=== PATIENT | male | born 1990 | race Caucasian/White ===

== ENCOUNTER 2021-12-09 21:41 | Observation (INO) | payer OTHER, SELFPAY ==
--- NOTE | ~2021-12-09 | CT_ITS ---
EXAMINATION: CT abdomen pelvis w con DATE: 12/09/2021 20:36 INDICATION: Right lower quadrant abdominal pain TECHNIQUE: Computed tomography (CT) of the abdomen and pelvis was performed with 100 mL Omnipaque-350 intravenous contrast. Automated exposure control and iterative reconstruction technique were employe d. The dose-length product was 1057.58 mGy-cm. COMPARISON: None FINDINGS: Lung bases are clear. Heart size is normal. No pericardial or pleural effusion. Small sliding-type hi atal hernia. Liver, gallbladder, spleen, pancreas, bilateral adrenal glands and left kidney are soniya l. 2.1 cm right renal cyst. Fluid-filled mildly dilated appendix measuring 8 mm diameter with mild in flammatory stranding the periappendiceal fat consistent with acute appendicitis. Remainder of the bow els are normal. Bladder is normal. No abscess or free intraperitoneal gas or fluid. No pathologically enlarged abdominal or pelvic lymphadenopathy. Bones are unremarkable. IMPRESSION: 1. Acute appendicitis Dr. Collins discussed these findings with Dr. Thayer at 8:58 PM. Reviewed, dictated and finalized at location A. SK[employer] TRA[employer]
[2021-12-09 19:07] VITALS: BP 148/88; PULSE 83; RESP 18; TEMP 36.6; O2SAT 100
[2021-12-09 20:03] VITALS: BP 129/81; PULSE 82; RESP 18; O2SAT 100
--- NOTE | 2021-12-09 20:07 | ED.ABDPAIN ---
HPI - Abdominal Pain General Chief Complaint: Abdominal Pain Stated Complaint: abd pain Time Seen by Provider: 12/09/21 19:59 Source: RN notes reviewed History of Present Illness HPI narrative: Patient presents emergency department from home for abdominal pain. Patient states symptoms began approximately 2 PM today pain is located in the right lower quadrant does not radiate. Described as sharp and stabbing. States he had one episode nausea vomiting. Denies any fever chills chest pain shortness of breath diarrhea or any other symptoms. States he not taking medication for the symptoms at home Related Data Home Medications Medication Instructions Recorded Confirmed No Home Medications 12/09/21 12/09/21 Allergies Allergy/AdvReac Type Severity Reaction Status Date / Time No Known Allergies Allergy Verified 12/09/21 20:04 Review of Systems Review of Systems: Gen.: Denies fevers or chills Eyes: Denies eye pain or visual change ENT: Denies congestion Respiratory: Denies shortness of breath or cough CV: Denies chest pain or palpitations GI: See HPI Musculoskeletal: Denies back pain or muscle pain Neuro: Denies numbness, tingling, weakness or focal weakness Skin: Denies rash Except as documented, all other systems reviewed and negative [facility] Past Medical History Medical History (Updated 12/09/21 @ 21:42 by Darell Thayer DO) Patient denies significant medical history Social History Social History (Updated 12/09/21 @ 20:08 by Darell Thayer DO) Smoking status: Never smoker Exam Narrative: APPEARANCE: No acute distress, nontoxic, resting in bed HEENT: Normocephalic, atraumatic, OMM RESPIRATORY: No respiratory distress, clear to auscultation bilaterally with no rhonchi wheezing or rales CARDIOVASCULAR: RRR s murmur ABDOMINAL: Soft nondistended tender palpation right lower quadrant no tenderness right upper quadrant, left upper quadrant left lower quadrant no rebound or guarding MUSCULOSKELETAl: Moves all extremities. No clubbing, cyanosis or edema. NEURO: Awake and alert. Following commands, speech normal, no focal deficits SKIN:: Warm, dry. Normal Color PSYCHIATRIC: Normal affect/mood Course Course Emergency Course: Discussed with Dr. Stone presentation work-up agrees with admission at this time Discussed with patient and family results of workup and diagnosis. Discussed need for admission. Patient and family understand and agree to current treatment plan Vital Signs Vital signs: Vital Signs Temperature 97.9 F 12/09/21 19:07 Pulse Rate 83 12/09/21 19:07 Respiratory Rate 18 12/09/21 19:07 Blood Pressure 148/88 H 12/09/21 19:07 Pulse Oximetry 100 12/09/21 19:07 Temperature 97.9 F 12/09/21 19:07 Pulse Rate 82 12/09/21 20:03 Respiratory Rate 18 12/09/21 20:03 Blood Pressure 129/81 12/09/21 20:03 Pulse Oximetry 100 12/09/21 20:03 MDM - Abdominal Pain Lab Data Result diagrams: 12/09/21 20:05 12/09/21 20:05 Labs: Lab Results 12/09/21 12/09/21 12/09/21 Range/Units 20:05 20:05 21:10 WBC 14.6 H (4.5-10.0) K/mm3 RBC 4.67 (4.6-6.20) M/mm3 Hgb 13.6 L (14.0-18.0) g/dL Hct 40.8 L (42.0-52.0) % MCV 87.4 (80-100) fl MCH 29.1 (26-34) pg MCHC 33.3 (32-36) g/dl RDW 13.2 (11.5-14.5) % Plt Count 296 (150-375) k/mm3 MPV 9.9 (7.4-10.4) fl Immature Gran % (Auto) 0.4 (0-0.5) % Neut % (Auto) 80.4 H (45.5-73.1) % Lymph % (Auto) 11.8 L (18.3-44.2) % [place] % (Auto) 6.3 (2.6-8.5) % Eos % (Auto) 0.9 (0-4.4) % Baso % (Auto) 0.2 (0.2-1.2) % Lymph # (Auto) 1.72 (0.9-3.2) K/mm3 [place] # (Auto) 0.9 H (0.1-0.6) K/mm3 Eos # (Auto) 0.1 (0-0.3) K/mm3 Baso # (Auto) 0.0 (0.0-0.1) K/mm3 Abs Immat Gran (auto) 0.06 H (0.00-0.031) K/mm3 Absolute Neuts (auto) 11.8 H (1.3-6.7) K/mm3 Absolute Nucleated RBC 0.0 (0.0-0.012) K/mm3 Nucleated RBC %
[2021-12-09 20:11] LABS: Basophils Percent Auto 0.2 % (0.2-1.2); Eosinophils Absolute Auto 0.1 K/mm3 (0-0.3); Eosinophils Percent Auto 0.9 % (0-4.4); Hematocrit 40.8 % (42.0-52.0); Hemoglobin 13.6 g/dL (14.0-18.0); Immature Granulocyte Absolute 0.06 K/mm3 (0.00-0.031); Immature Granulocyte Percent A 0.4 % (0-0.5); Lymphocytes Absolute Auto 1.72 K/mm3 (0.9-3.2); Lymphocytes Percent Auto 11.8 % (18.3-44.2); Mean Corpuscular HGB Conc 33.3 g/dl (32-36); Mean Corpuscular Hemoglobin 29.1 pg (26-34); Mean Corpuscular Volume 87.4 fl (80-100); Mean Platelet Volume 9.9 fl (7.4-10.4); Monocytes Absolute Auto 0.9 K/mm3 (0.1-0.6); Monocytes Percent Auto 6.3 % (2.6-8.5); Neutrophils Absolute Auto 11.8 K/mm3 (1.3-6.7); Neutrophils Percent Auto 80.4 % (45.5-73.1); Platelet Count Result 296 k/mm3 (150-375); Red Blood Count 4.67 M/mm3 (4.6-6.20); Red Cell Distribution Width 13.2 % (11.5-14.5); White Blood Count 14.6 K/mm3 (4.5-10.0)
[2021-12-09] MEDS: KETOROLAC 30 MG/ML VIAL (*BKC) IV PUSH (20:16)
[2021-12-09] MEDS: ONDANSETRON INJ 4 MG/2 ML VIAL IV PUSH (20:17)
[2021-12-09] MEDS: SODIUM CHLORIDE 0.9% IV 1,000 ML 999 ML IV CONT (20:17)
[2021-12-09 20:20] LABS: Alanine Aminotransferase 21 U/L (4-50); Albumin Level 4.8 g/dL (3.5-5.1); Alkaline Phosphatase 94 U/L (38-126); Anion Gap 11 mmol/L (8-16); Aspartate Amino Transferase 37 U/L (17-59); Bilirubin,Total 0.6 mg/dL (0.2-1.3); Blood Urea Nitrogen 12 mg/dL (9-20); Calcium 9.5 mg/dL (8.4-10.2); Carbon Dioxide 25 mmol/L (22-30); Chloride 103 mmol/L (98-107); Estimated CRCL calculation 115 ml/min; Estimated Glomerular Filt Rate > 60; Glucose 111 mg/dL (65-110); Lipase 46 U/L (23-300); Potassium 4.2 mmol/L (3.4-5.0); Sodium 139 mmol/L (137-145)
[2021-12-09 21:19] LABS: Add Urine Microscopic? NO; Appearance Urine Clear (Clear); Bilirubin Urine Negative (Negative); Blood Urine Negative (Negative); Color Urine Yellow (Yellow); Glucose Urine UA Negative (Negative); Ketones Urine Negative (Negative); Leukocyte Esterase Ur Negative LEU/UL (Negative); Nitrate Urine Negative (Negative); Protein Urine Negative (Negative); Urobilinogen Urine Negative mg/dL (<2.0)
[2021-12-09 21:32] LABS: Specific Grav Ur 1.054 (1.001-1.035)
[2021-12-09 21:42] VITALS: BP 130/67; PULSE 68; RESP 14; O2SAT 98
[2021-12-09 22:18] VITALS: BP 120/62; PULSE 83; RESP 16; O2SAT 99
[2021-12-09 22:20] VITALS: BP 121/63; PULSE 68; RESP 20; TEMP 36.4; O2SAT 100
--- NOTE | 2021-12-09 22:38 | ADMGEN ---
This patient, Keegan Blank, was admitted to [facility]. Patient/family oriented to hospital policies and general routines including ID bracelet, bed and alarms, visiting hours, pain management, procedures, bathroom and other care routines, personal items, smoking policy, room service/diet, and visiting hours. Information on how to activate the Rapid Response Team has been discussed. Patient/Family are encouraged to report perceived risks to care and to ask questions if they do not understand what they are told or what they should do.
[2021-12-09] MEDS: SODIUM CHLORIDE 0.9% IV 1,000 ML 125 ML IV CONT (22:47)
[2021-12-09] MEDS: MORPHINE SULFATE (*CRX) 4 MG/ML INJ IV PUSH (22:49)
[2021-12-10] VITALS (11 sets, daily range): BP systolic 110–141; BP diastolic 58–82; PULSE 60–87; RESP 16–20; TEMP 36.8–37.4; O2SAT 89–100
[2021-12-10] MEDS: MORPHINE SULFATE (*CRX) 4 MG/ML INJ IV PUSH ×4 (06:02→17:37)
[2021-12-10 06:21] LABS: Basophils Percent Auto 0.2 % (0.2-1.2); Eosinophils Absolute Auto 0.2 K/mm3 (0-0.3); Eosinophils Percent Auto 1.6 % (0-4.4); Hemoglobin 11.2 g/dL (14.0-18.0); Immature Granulocyte Absolute 0.02 K/mm3 (0.00-0.031); Immature Granulocyte Percent A 0.2 % (0-0.5); Lymphocytes Absolute Auto 2.33 K/mm3 (0.9-3.2); Lymphocytes Percent Auto 22.8 % (18.3-44.2); Mean Corpuscular HGB Conc 32.9 g/dl (32-36); Mean Corpuscular Hemoglobin 28.9 pg (26-34); Mean Corpuscular Volume 87.9 fl (80-100); Mean Platelet Volume 10.3 fl (7.4-10.4); Monocytes Absolute Auto 0.9 K/mm3 (0.1-0.6); Monocytes Percent Auto 8.8 % (2.6-8.5); Neutrophils Absolute Auto 6.8 K/mm3 (1.3-6.7); Neutrophils Percent Auto 66.4 % (45.5-73.1); Platelet Count Result 227 k/mm3 (150-375); Red Blood Count 3.87 M/mm3 (4.6-6.20); Red Cell Distribution Width 13.3 % (11.5-14.5); White Blood Count 10.2 K/mm3 (4.5-10.0)
[2021-12-10 06:40] LABS: Alanine Aminotransferase 15 U/L (4-50); Albumin Level 3.7 g/dL (3.5-5.1); Alkaline Phosphatase 68 U/L (38-126); Anion Gap 7 mmol/L (8-16); Aspartate Amino Transferase 21 U/L (17-59); Bilirubin,Total 0.9 mg/dL (0.2-1.3); Blood Urea Nitrogen 12 mg/dL (9-20); Calcium 8.5 mg/dL (8.4-10.2); Carbon Dioxide 27 mmol/L (22-30); Chloride 103 mmol/L (98-107); Estimated CRCL calculation 116 ml/min; Estimated Glomerular Filt Rate > 60; Glucose 99 mg/dL (65-110); Sodium 137 mmol/L (137-145)
[2021-12-10] MEDS: SODIUM CHLORIDE 0.9% IV 1,000 ML 125 ML IV CONT (07:10)
--- NOTE | 2021-12-10 07:52 | PM.IMHP ---
H&P: HPI History of Present Illness Date/Time: 12/10/21 07:52 Chief Complaint: Lower right abdominal pain Narrative: History of Present Illness HPI narrative: Patient is an 31 y/o White male who presented last night to the [place] emergency department from home for abdominal pain. Patient states symptoms began approximately 2 PM on 12/09. The pain is located in the right lower quadrant & does not radiate. Described as sharp and stabbing. States he had one episode nausea & vomiting prior to coming to the hospital, but none since. He denies any fever, chills, chest pain, shortness of breath, diarrhea, or any other symptoms. States he not taking medication for the symptoms at home. Workup in the emergency room a revealed somewhat elevated white count at 14,000. He also had a CT scan that showed uncomplicated acute appendicitis with no other specific abnormalities. Patient was started on Zosyn and admitted. Id this time I am asked to see him for possibility of laparoscopic appendectomy versus treatment with antibiotics. See plan below. Review of Systems Review of Systems: All systems reviewed & are unremarkable except as noted in HPI and below (HPI) Constitutional: Constitutional: Reports as per HPI, Denies chills, Denies fever(s) and Reports poor appetite Eyes: Eyes: Reports no additional eye complaints ENT: Reports Normal hearing present and Denies dizziness Comments: apparently does chew tobacco. No complaints of mouth or tongue lesions. Cardiovascular: Cardiovascular: Reports no additional cardiovascular complaints, Denies chest pain and Denies irregular heart rhythm Respiratory: Respiratory: Reports no additional respiratory complaints Gastrointestinal: Gastrointestinal: Reports abdominal pain ( see HPI.) and Denies bloating Comments: The patient states his pain started across the mid lower abdomen when he awoke from sleeping during the day because he works nights. He was not having abdominal pain when he went to sleep that morning. He has not had anything to eat since going to work at about 10:30 p.m. on Wednesday night. Genitourinary: Genitourinary: Reports no additional male genitourinary complaints and Denies hematuria Musculoskeletal: Musculoskeletal: Denies back pain Integumentary/Breasts: Skin/Breast: Reports system reviewed and no additional complaints, except as docu Neurologic: Reports Normal hearing present, Denies Abnormal speech present, Denies confusion and Denies dizziness Psychiatric: Psychiatric: Reports no additional psychiatric complaints and Denies confusion Endocrine: Endocrine: Reports no additional endocrine complaints Hematologic/Lymphatic: Hematologic/Lymphatic: Denies easy bleeding and Denies easy bruising Allergic/Immunologic: Allergic/Immunologic: Reports no additional allergic/immunologic complaints PMFSH Past Medical History Medical History Patient denies significant medical history Social History Social History Smoking status: Never smoker Smokeless tobacco user: chewing tobacco Second hand tobacco smoke exposure: Yes Alcohol intake: former Substance use: never Substance use type: does not use Spiritual care concerns: No Meds Home Medications and Allergies Home Medications Medication Instructions Recorded Confirmed Type No Home Medications 12/09/21 12/09/21 History Allergies Allergy/AdvReac Type Severity Reaction Status Date / Time No Known Allergies Allergy Verified 12/09/21 20:04 Vital Signs Vital Signs - 24 hr 12/09/21 19:07 12/09/21 20:03 12/09/21 21:42 Temperature 36.6 C Pulse Rate 83 82 68 Respiratory Rate 18 18 14 Blood Pressure 148/88 H 129/81 130/67 Pulse Oximetry 100 100 98 12/09/21 22:18 12/09/21 22:20 12/10/21 06:00 Temperature 36.4 C L 36.8 C Pulse Rate 83 68 66 Respiratory Rate 16 20 20 Blood
[2021-12-10] MEDS: LACTATED RINGERS 1,000 ML 30 ML IV CONT ×2 (12:30→15:46)
[2021-12-10] MEDS: fentaNYL CITRATE INJ (*CRX) 100 MCG/2 ML VIAL 50 MCG IV PUSH (13:22)
--- NOTE | 2021-12-10 13:48 | WPDHPUPDATE1 ---
History and Physical Update Update Date/Time: 12/10/21 13:48 History and Physical has been reviewed, including an updated exam of the patient. There are NO changes in the patient's condition. Risks, benefits, and alternatives have been discussed and questions answered. Patient agrees to proceed with procedure.
--- NOTE | 2021-12-10 13:49 | WPDHPUPDATE1 ---
History and Physical Update Update Date/Time: 12/10/21 13:49 History and Physical has been reviewed, including an updated exam of the patient. There are NO changes in the patient's condition. Risks, benefits, and alternatives have been discussed and questions answered. Patient agrees to proceed with procedure.
--- NOTE | 2021-12-10 13:52 | WPDANESEPPF ---
Anes - Initial Pre Proc Eval Procedure: Operation Date: 12/10/21 14:30 Proposed Procedures p Laparoscopic Appendectomy Possible Open - Jhon Stone MD Date/Time: 12/10/21 13:52 Surgeon: Jhon Stone MD Pre Op Diagnosis: Appendicitis Patient Data Age: 31 Gender: M Height: 1.78 m Weight: 110 kg Last Vital Signs Temp 37.4 C 12/10/21 12:30 Pulse 60 12/10/21 12:30 Resp 16 12/10/21 12:30 BP 112/58 L 12/10/21 12:30 Pulse Ox 100 12/10/21 12:30 Allergies Allergy/AdvReac Type Severity Reaction Status Date / Time No Known Allergies Allergy Verified 12/10/21 13:12 Home Medications Medication Instructions Recorded Confirmed Type No Home Medications 12/09/21 12/09/21 History Laboratory Tests 12/09/21 12/09/21 12/09/21 20:05 20:05 21:10 WBC 14.6 K/mm3 H K/mm3 (4.5-10.0) RBC 4.67 M/mm3 M/mm3 (4.6-6.20) Hgb 13.6 g/dL L g/dL (14.0-18.0) Hct 40.8 % L % (42.0-52.0) MCV 87.4 fl fl (80-100) MCH 29.1 pg pg (26-34) MCHC 33.3 g/dl g/dl (32-36) RDW 13.2 % % (11.5-14.5) Plt Count 296 k/mm3 k/mm3 (150-375) MPV 9.9 fl fl (7.4-10.4) Immature Gran % (Auto) 0.4 % % (0-0.5) Neut % (Auto) 80.4 % H % (45.5-73.1) Lymph % (Auto) 11.8 % L % (18.3-44.2) [place] % (Auto) 6.3 % % (2.6-8.5) Eos % (Auto) 0.9 % % (0-4.4) Baso % (Auto) 0.2 % % (0.2-1.2) Lymph # (Auto) 1.72 K/mm3 K/mm3 (0.9-3.2) [place] # (Auto) 0.9 K/mm3 H K/mm3 (0.1-0.6) Eos # (Auto) 0.1 K/mm3 K/mm3 (0-0.3) Baso # (Auto) 0.0 K/mm3 K/mm3 (0.0-0.1) Abs Immat Gran (auto) 0.06 K/mm3 H K/mm3 (0.00-0.031) Absolute Neuts (auto) 11.8 K/mm3 H K/mm3 (1.3-6.7) Absolute Nucleated RBC 0.0 K/mm3 K/mm3 (0.0-0.012) Nucleated RBC % 0.0 % % (0.0-0.2) Sodium 139 mmol/L mmol/L (137-145) Potassium 4.2 mmol/L mmol/L (3.4-5.0) Chloride 103 mmol/L mmol/L (98-107) Carbon Dioxide 25 mmol/L mmol/L (22-30) Anion Gap 11 mmol/L mmol/L (8-16) BUN 12 mg/dL mg/dL (9-20) Creatinine 1.00 mg/dL mg/dL (0.7-1.3) Estim Creat Clear Calc 115 ml/min ml/min Estimated GFR > 60 (59 - ) Glucose 111 mg/dL H mg/dL (65-110) Calcium 9.5 mg/dL mg/dL (8.4-10.2) Total Bilirubin 0.6 mg/dL mg/dL (0.2-1.3) AST 37 U/L U/L (17-59) ALT 21 U/L U/L (4-50) Alkaline Phosphatase 94 U/L U/L (38-126) Total Protein 8.0 g/dL g/dL (6.3-8.2) Albumin 4.8 g/dL g/dL (3.5-5.1) Lipase 46 U/L U/L (23-300) Urine Color Yellow (Yellow) Urine Appearance Clear (Clear) Urine pH 6.0 (5.0-9.0) Ur Specific [place] 1.054 H (1.001-1.035) Urine Protein Negative mg/dL mg/dL (Negative) Urine Glucose (UA) Negative mg/dL mg/dL (Negative) Urine Ketones Negative mg/dL mg/dL (Negative) Ur Blood (Man) Negative (Negative) Urine Nitrate Negative (Negative) Urine Bilirubin Negative (Negative) Urine Urobilinogen Negative mg/dL mg/dL (<2.0) Leukocyte Esterase Rfl Negative CUCO/UL CUCO/UL (Negative) 12/10/21 12/10/21 06:09 06:09 WBC 10.2 K/mm3 H K/mm3 (4.5-10.0) RBC 3.87 M/mm3 L M/mm3 (4.6-6.20) Hgb 11.2 g/dL L g/dL (14.0-18.0) Hct 34.0 % L % (42.0-52.0) MCV 87.9 fl fl (80-100) MCH 28.9 pg pg (26-34) MCHC 32.9 g/dl g/dl (32-36) RDW 13.3 % % (11.5-14.5) Plt Count 227 k/mm3 k/mm3 (150-375) MPV 10.3 fl fl (7.4-10.4) Immature Gran % (Auto) 0.2 % % (0-0.5) Neut % (Auto) 66.4 % % (45.5-73.1) Lymph
--- NOTE | 2021-12-10 15:53 | W.PM.PROC2 ---
Procedure Note - Detailed Date of Procedure 12/10/21 Pre-op Diagnosis Acute uncomplicated Appendicitis Post-op Diagnosis same Procedure Performed laparoscopic appendectomy Surgeon Jhon Stone MD Performance Test Engineer Gientte BONILLA. OR Cereal Miller Anesthesia general Indications Patient had a CT scan showing dilated appendix with surrounding inflammatory change. He had appropriate symptoms with elevated white count and mid lower abdominal pain radiating toward more the right than the left. Findings There was an inflamed appendix extending inferiorly from a high-riding cecum. The appendix was lying in the right colic gutter with its tip right at the pelvic brim. Description of Procedure The patient was seen again in the Holding Room. The risks, benefits, complications, treatment options, and expected outcomes were discussed with the patient and/or family. The possibilities of reaction to medication, pulmonary aspiration, perforation of viscus, bleeding, recurrent infection, finding a normal appendix, the need for additional procedures, failure to diagnose a condition, and creating a complication requiring transfusion or operation were discussed. There was concurrence with the proposed plan and informed consent was obtained. The site of surgery was properly noted/marked. The patient was taken to Operating Room, and a time out was preformed which identified this as the proper patient, and the procedure verified as laparoscopic appendectomy, possible open. The patient was placed in the supine position and general anesthesia was induced, along with placement of an orogastric tube, SCD hose, and a French catheter. The abdomen was prepped and draped in a sterile fashion. A 5 mm umbilical incision was made and the peritoneal cavity was accessed using the Veress needle technique. Once the abdomen was insufflated to 14 mmHg pressure a 5 mm XL trocar over the 0? 5 mm scope was carefully twisted into the abdomen via the umbilicus. The pneumoperitoneum was then established to steady pressure of 14 mm Hg. A 12 mm laparoscopic port was placed through a transverse suprapubic incision. An additional 5 mm cannula was then placed in in the left upper quadrant at the level custodial between the left costal margin and the umbilicus under direct vision. A careful evaluation of the entire abdomen was carried out. The patient was placed in Trendelenburg and left lateral decubitus position. The small intestines were retracted in the cephalad and left lateral direction away from the pelvis and right lower quadrant. The patient was found to have an enlarged and inflamed appendix that was extending [into the right side of the pelvis. There was no evidence of perforation. The appendix was carefully dissected. Once it was free a 45 mm ethicon endogastroentestinal stapler with a vascular load was placed across the mesoappendix. This was fired and hemostasis was checked along the staple line and appeared to be adequate. For this patient, this divided the entire mesoappendix and we were able to proceed immediately to stapling off the appendix at it's junction with the cecum. The appendix was then divided at its base using the same 45 mm stapler with a 3.5 mm bowel wall load. Minimal appendiceal stump was left in place. There was no evidence of bleeding, leakage, or complication after division of the appendix at its junction with the cecum.. The appendix was then placed in an endobag which had been brought through the 12 mm suprapubic port site. The appendix and the bag were then extracted through this larger port site in the suprapubic position. The suprapubic port site was closed using a #1 Polysorb suture passed with a Adin-Laws cone and needle suture passer at the level of the fascia. This was actually passed twice placing 2 separate simple sutures of the #1 Vicryl to nicely approximate the fascia under this incision. The trocar site skin wounds were closed using 4-0 undyed Monocryl and
--- NOTE | 2021-12-10 19:20 | SUR.PHASEII ---
DR MANN TOLD ME TO DC PT WITH THE WRITTEN NURSING ORDER. PT DC WITH WITH WITHOUT INCIDENT.
== END 2021-12-10 19:15 | disposition home or self-care (01) ==
LOC: ANHED 21:42 → ANHSUROVER 12-10 02:06 → ANHED 12-10 18:37 → ANHSUROVER 12-12 11:30 → ANHED 12-12 11:30 → ANHSUROVER 12-12 11:32
PROVIDERS: Admitting Provider Surgery; Visit Provider Emergency Medicine
PROC: 0DTJ4ZZ Resection of Appendix, Percutaneous Endoscopic Approach (ICD-10-PCS; CPT 44970; principal; 2021-12-10 14:30)
DX: K35.30 Acute appendicitis with localized peritonitis, without perforation or gangrene (principal); F17.220 Nicotine dependence, chewing tobacco, uncomplicated; E66.9 Obesity, unspecified; Z68.34 Body mass index [BMI] 34.0-34.9, adult
CPT/HCPCS: 44970; 36415; 74177; 80053; 81003; 83690; 85025; 88304; 96361; 96365; 96375; 96376; 99285; G0378; J1100; J1170; J1885; J2250; J2270; J2405; J2543; J2704; J2710; J3010; J7030; J7120; Q9967